=== PATIENT | male | born 1950 | race American Indian/Alaskan Native ===

== ENCOUNTER 2021-07-04 06:23 | Day surgery (SDC) | payer MEDICARE ==
[2021-06-27 10:46] LABS: Mean Corpuscular HGB Conc 33 % (32-34); Mean Corpuscular Volume 87 fl (84-94); Platelet Count 242 K/mm3 (140-440); Red Blood Count 4.96 M/mm3 (3.65-5.03); Red Cell Distribution Width 13.5 % (13.2-15.2)
[2021-06-27 11:07] LABS: Alanine Aminotransferase 17 units/L (7-56); Albumin 4.2 g/dL (3.9-5); BUN/Creatinine Ratio 9; Blood Urea Nitrogen 8 mg/dL (9-20); Calcium 9.4 mg/dL (8.4-10.2); Hemolysis Index 7
[2021-07-04] MEDS ORDERED: LACTATED RINGERS 1,000 ML ONE (06:44)
[2021-07-04] MEDS ORDERED: HYDROmorphone 1 MG/1 ML INJ IV PRN (07:41)
--- NOTE | 2021-07-04 07:42 | Anesthesia Consultation ---
Anesthesia Consult and Med Hx Date of service: 07/04/21 - Airway Anesthetic Teeth Evaluation: Chipped ROM Head & Neck: Adequate Mental/Hyoid Distance: Adequate Mallampati Class: Class II Intubation Access Assessment: Good - Pre-Operative Health Status ASA Pre-Surgery Classification: ASA2 Proposed Anesthetic Plan: General - Pulmonary Hx Smoking: Yes (STOPPED 1996) Hx Sleep Apnea: No (DAMON PRE SCREEN HIGH RISK) - Cardiovascular System Hx Hypertension: Yes Hx Heart Attack/AMI: No - Central Nervous System Hx Psychiatric Problems: No - Endocrine Hx Non-Insulin Dependent Diabetes: Yes - Hematic Hx Anemia: No Hx Sickle Cell Disease: No - Other Systems Hx Alcohol Use: Yes (BEER OCC.) Hx Substance Use: No Hx Cancer: Yes Hx Obesity: Yes
--- NOTE | 2021-07-04 07:42 | Anesthesia Day of Surgery ---
Anesthesia Day of Surgery - Day of Surgery Patient Examined: Yes Patient H&P Reviewed: Yes Patient is NPO: Yes
[2021-07-04] MEDS ORDERED: ceFAZolin/Water 2 GM/20 ML 2 GM/20 ML SYRINGE IV ONE (07:57)
[2021-07-04] MEDS ORDERED: propofoL 200 MG/20 ML VIAL IV ONE (08:00)
[2021-07-04] MEDS ORDERED: LACTATED RINGERS 1,000 ML IV SCH (08:00)
[2021-07-04] MEDS ORDERED: LIDOCAINE MPF (2%) 20 MG/1 ML VIAL 5 ML ONE (08:00)
[2021-07-04] MEDS ORDERED: MIDAZOLAM 2 MG/2 ML INJ IV NR (08:00)
[2021-07-04] MEDS ORDERED: fentaNYL 100 MCG/2 ML INJ ONE (08:00)
[2021-07-04] MEDS ORDERED: ONDANSETRON 4 MG/2 ML INJ IV PRN (08:00)
[2021-07-04] MEDS ORDERED: ONDANSETRON 4 MG/2 ML INJ ONE (09:14)
[2021-07-04] MEDS ORDERED: dexAMETHasone 20 MG/5 ML VIAL ONE (09:14)
[2021-07-04] MEDS ORDERED: KETOROLAC 30 MG/1 ML INJ ONE (09:20)
[2021-07-04] MEDS: HYDROmorphone 1 MG/1 ML INJ IV PRN ×2 (09:57→10:10)
--- NOTE | 2021-07-04 10:30 | Operative Report ---
DATE OF SURGERY: 07/04/2021 TIME: Approximately 9:10 a.m. PREOPERATIVE DIAGNOSES: 1. Bladder cancer. 2. Recurrent small bladder tumors. POSTOPERATIVE DIAGNOSES: 1. Bladder cancer. 2. Recurrent small bladder tumors. OPERATIVE PROCEDURE: Cystoscopy and fulguration of multiple small tumors. ATTENDING: Herbie Patel MD NEWSPAPER PHOTO EDITOR: None. ANESTHESIA: General. ESTIMATED BLOOD LOSS: 5 mL. DRAINS: None. COMPLICATIONS: None. SPECIMENS: Urine for cytology. INDICATIONS FOR PROCEDURE: The patient is a 70-year-old man with a history of bladder cancer. On surveillance cystoscopy, he was found to have multiple small bladder tumors. He presents today for biopsy and/or fulguration. DESCRIPTION OF PROCEDURE IN DETAIL: After induction of suitable anesthesia and proper positioning and preparation in the dorsal lithotomy position, a resectoscope was used to enter the bladder under direct visualization. The ureteral orifices were in the normal anatomic position. The patient appeared to have prior radiation or a procedure to his prostate. On the anterior wall and dome of the bladder, there were multiple small papillary tumors that were each less than 0.5 cm. The patient did have somewhat of a high bladder neck and it made reaching these tumors difficult. Using the loop electrocautery with downward pressure on the abdomen, all the small tumors, which were approximately 7, were fulgurated extensively. A rim of normal mucosa was also fulgurated to ensure complete eradication of the visible tumors. The urine cytology was sent at the beginning of the procedure to determine tumor grade. The bladder was inspected multiple times to ensure that all visible tumors were fulgurated. The bladder was also inspected after fulguration to ensure hemostasis, which was excellent. Once complete, the bladder was emptied and the resectoscope was removed. The patient was then awakened from anesthesia and transferred to the recovery room in stable condition. He tolerated the procedure well. He should follow up in approximately 2-4 weeks for a routine followup visit. TID: [id number] RECEIPT: [id number] MAVERICK/JOSIAS
[2021-07-04 12:20] VITALS: BP 134/77
--- NOTE | 2021-07-04 16:24 | Post Anesthesia Evaluation ---
- Post Anesthesia Evaluation Patient Participated: Yes Airway Patent: Yes Stable Respiratory Function: Yes Nausea/Vomiting: No Temp > 96.8F: Yes Pain Manageable: Yes Adequeate Hydration: Yes Anesthesia Complications: No Block Receding Appropriately: Not Applicable Patient on Ventilator: No
== END 2021-07-04 11:20 | disposition home or self-care (01) ==
LOC: OR 06:23
PROVIDERS: ATTEND Urology
DX: C67.1 Malignant neoplasm of dome of bladder (principal); I10 Essential (primary) hypertension; E66.9 Obesity, unspecified; E11.9 Type 2 diabetes mellitus without complications; Z72.89 Other problems related to lifestyle; Z20.822 Contact with and (suspected) exposure to COVID-19; Z79.899 Other long term (current) drug therapy; Z87.891 Personal history of nicotine dependence; Z79.84 Long term (current) use of oral hypoglycemic drugs; Z79.82 Long term (current) use of aspirin; Z90.49 Acquired absence of other specified parts of digestive tract; Z85.46 Personal history of malignant neoplasm of prostate; Z98.890 Other specified postprocedural states; Z68.41 Body mass index [BMI] 40.0-44.9, adult
CPT/HCPCS: 36415; 52234; 80053; 82962; 85027; J0690; J1100; J1170; J1885; J2250; J2405; J2704; J3010; J3490; J7120; U0003; 88112